=== PATIENT | male | born 1975 | race Hispanic/Latino ===

== ENCOUNTER 2017-11-08 08:49 | Emergency (ER) | payer OTHER ==
[2017-11-08 09:05] VITALS: BP 126/83; PULSE 65; RESP 18; TEMP 97; O2SAT 97
--- NOTE | 2017-11-08 09:42 | ED PDOC ---
HPI: Seizure Time Seen by Provider: 11/08/17 09:10 Chief Complaint (Nursing): Seizure History Per: Patient, Family History/Exam Limitations: no limitations Associated Symptoms: denies: Bit Tongue, Incontinence Of Urine, Incontinence Of Stool Additional Complaint(s): Terry is a 42 year old male who presents to the emergency department for medical evaluation [place]/p [place] the train this [place]. Patient states he was having an Aura of 'feeling hot' for 2 minutes. Patient admits he was drinking 9 alcoholic drinks last night. Patient states he had similar episodes last year with the same Aura, and was evaluated by Neurologist at [facility]. Reports his MRI, EEG were all normal, and was not started on any medications. Cousin states he had a post-ictal period, but at baseline mental status right now. Patient denies any headache, paraesthesias, tongue biting, incontinence. PMD: Sh[facility] in [facility] Past Medical History Reviewed: Historical Data, Nursing Documentation, Vital Signs Vital Signs: Last Vital Signs Temp 97 F L 11/08/17 09:01 Pulse 65 11/08/17 09:01 Resp 18 11/08/17 09:01 BP 126/83 11/08/17 09:01 Pulse Ox 97 11/17/17 22:31 - Medical History PMH: Seizures - Surgical History Surgical History: No Surg Hx - Family History Family History: States: Unknown Family Hx Other Family History: Brain Tumor - Social History Alcohol: Social - Allergies Allergies/Adverse Reactions: Allergies Allergy/AdvReac Type Severity Reaction Status Date / Time No Known Allergies Allergy Verified 11/08/17 09:01 Review of Systems ROS Statement: Except As Marked, All Systems Reviewed And Found Negative Neurological: Positive for: Seizures Physical Exam - Reviewed Nursing Documentation Reviewed: Yes Vital Signs Reviewed: Yes - Physical Exam Appears: Positive for: Non-toxic Head Exam: Positive for: ATRAUMATIC, NORMAL INSPECTION, NORMOCEPHALIC Skin: Positive for: Normal Color, Warm, Dry Eye Exam: Positive for: Normal appearance, EOMI, PERRL ENT: Positive for: Normal ENT Inspection Neck: Positive for: Normal Cardiovascular/Chest: Positive for: Regular Rate, Rhythm Respiratory: Positive for: Normal Breath Sounds. Negative for: Respiratory Distress Gastrointestinal/Abdominal: Positive for: Normal Exam, Soft. Negative for: Tenderness Extremity: Positive for: Normal ROM. Negative for: Deformity Neurologic/Psych: Positive for: Alert, service worker II-XII, Oriented (x 3). Negative for : Motor/Sensory Deficits - Laboratory Results Result Diagrams: 11/08/17 09:50 11/08/17 09:50 - ECG O2 Sat by Pulse Oximetry: 97 (RA) Pulse Ox Interpretation: Normal - Physician Consult Information Time Consulting Physican Contacted: 10:55 Physician Contacted: Trip Herndon Outcome Of Conversation: Recommends MRI with and without contrast, EEG and will speak to patient about starting seizure med. Medical Decision Making Medical Decision Making: Time: 09:17 Impression: Recurring seizures Plan: - CT Head without Contrast - EKG - Alcohol Serum - CMP - Drug Screen, Urine - CBC - Partial Thromboplastin Time - Prothrombin Time - Chest X-Ray - Glucose, Blood, POC Stat - Urinalysis Stat Time: 10:22 CT Head without Contrast FINDINGS: HEMORRHAGE: No acute parenchymal, subarachnoid or extra-axial hemorrhage. BRAIN: No mass effect or edema. No atrophy or chronic microvascular ischemic changes. VENTRICLES: Unremarkable. No hydrocephalus. CALVARIUM: Unremarkable. PARANASAL SINUSES: Mucoperiosteal inflammatory changes seen within both maxillary antra with subtotal opacification of the ethmoid air complex extending superiorly into the frontal sinus. Mild moderate mucosal thickening present within the sphenoid sinus. MASTOID AIR CELLS: Unremarkable as visualized. No inflammatory changes. OTHER FINDINGS: None. IMPRESSION: No acute intracranial hemorrhage. Mucoperiosteal inflammatory changes within all the paranasal sinuses as described. Time: 10:44 Chest X-Ray FINDINGS: LUNGS: No active pulmonary disease. PLEURA: No significant pleural effusion identified, no pneumothorax apparent. CARDIOVASCULAR: Heart size is borderline/ mildly enlarged OSSEOUS STRUCTURES: No significant abnormalities. VISUALIZED UPPER ABDOMEN: Normal. OTHER FINDINGS: None. IMPRESSION: No acute infiltrates. Time: 10:[address] Herndon (Neurologist) 11:45 Pt and Mother decline admission, stating they want to go back to [facility] that evaluated pt last year. Pt signed out AMA, advised to refrain from driving or operating heavy machinery. Medical Emergency Report faxed to the [employer]. Scribe Attestation: Documented by Larry Farias, acting as a scribe for Carol Armstrong MD. Provider Scribe Attestation: All medical record entries made by the Scribe were at my direction and personally dictated by me. I have reviewed the chart and agree that the record accurately reflects my personal performance of the history, physical exam, medical decision making, and the department course for this patient. I have also personally directed, reviewed, and agree with the discharge instructions and disposition. Disposition - Clinical Impression Clinical Impression: Recurrent seizures - Disposition Disposition: Against Medical Advice Disposition Time: 11:34 Condition: UNKNOWN Forms: [employer] ([employer])
[2017-11-08 10:02] LABS: BASO % 0.7 % (0.0-2.0); EOS # 0.3 K/uL (0.0-0.7); HEMOGLOBIN 15.1 g/dL (12.0-18.0); LYMPH # 2.2 K/uL (1.0-4.3); LYMPH % 40.1 % (20.0-40.0); MEAN CELL VOLUME 96.1 fl (80.0-94.0); MEAN CORPUSCULAR HEMOGLOBIN 33.1 pg (27.0-31.0); MEAN CORPUSCULAR HGB CONC 34.4 g/dL (33.0-37.0); MEAN PLATELET VOLUME 8.7 fl (7.2-11.7); MONO # 0.4 K/uL (0.0-0.8); MONO % 8.1 % (0.0-10.0); NEUT # 2.5 K/uL (1.8-7.0); NEUT % 46.1 % (50.0-75.0); RBC 4.55 Mil/uL (4.40-5.90); RED CELL DISTRIBUTION WIDTH 12.9 % (11.5-14.5); WHITE BLOOD COUNT 5.4 K/uL (4.8-10.8)
[2017-11-08 10:13] LABS: ALB/GLOB RATIO 1.3 (1.0-2.1); ALBUMIN 4.3 g/dL (3.5-5.0); ALT/SGPT 46 U/L (21-72); AST/SGOT 23 U/L (17-59); BLOOD UREA NITROGEN 17 mg/dl (9-20); CALCIUM 9.1 mg/dL (8.4-10.2); GFR AFRICAN-AMERICAN > 60; GFR NON-AFRICAN AMERICAN > 60
[2017-11-08 10:18] LABS: URINE BILIRUBIN NEGATIVE (NEGATIVE); URINE BLOOD NEGATIVE (NEGATIVE); URINE CLARITY SLIGHTY-CLOUDY (Clear); URINE COLOR YELLOW (YELLOW); URINE GLUCOSE (UA) NEG (Normal); URINE LEUKOCYTE ESTERASE NEG Leu/uL (Negative); URINE NITRATE NEGATIVE (NEGATIVE); URINE PROTEIN 100 mg/dL (NEGATIVE); URINE UROBILINOGEN 0.2-1.0 mg/dL (0.2-1.0)
[2017-11-08 10:21] LABS: BARBITURATES, UR NEGATIVE (NEGATIVE); BENZODIAZEPINES, UR NEGATIVE (NEGATIVE); OPIATES, UR NEGATIVE (NEGATIVE); PHENCYCLIDINE, UR NEGATIVE (NEGATIVE)
--- NOTE | 2017-11-08 10:23 | CT ---
PROCEDURE: CT scan brain dated 11/08/2017 HISTORY: Seizure COMPARISON: No prior study available comparison. TECHNIQUE: Axial computed tomography images were obtained through the head/brain without intravenous contrast. Radiation dose: Total exam DLP = 874.17 mGy-cm. This CT exam was performed using one or more of the following dose reduction techniques: Automated exposure control, adjustment of the mA and/or kV according to patient size, and/or use of iterative reconstruction technique. FINDINGS: HEMORRHAGE: No acute parenchymal, subarachnoid or extra-axial hemorrhage. BRAIN: No mass effect or edema. No atrophy or chronic microvascular ischemic changes. VENTRICLES: Unremarkable. No hydrocephalus. CALVARIUM: Unremarkable. PARANASAL SINUSES: Mucoperiosteal inflammatory changes seen within both maxillary antra with subtotal opacification of the ethmoid air complex extending superiorly into the frontal sinus. Mild moderate mucosal thickening present within the sphenoid sinus. MASTOID AIR CELLS: Unremarkable as visualized. No inflammatory changes. OTHER FINDINGS: None. IMPRESSION: No acute intracranial hemorrhage. Mucoperiosteal inflammatory changes within all the paranasal sinuses as described.
[2017-11-08 10:37] LABS: PROTHROMBIN TIME 11.1 Seconds (9.8-13.1)
--- NOTE | 2017-11-08 10:45 | RAD ---
HISTORY: Seizure COMPARISON: No prior. FINDINGS: LUNGS: No active pulmonary disease. PLEURA: No significant pleural effusion identified, no pneumothorax apparent. CARDIOVASCULAR: Heart size is borderline/ mildly enlarged OSSEOUS STRUCTURES: No significant abnormalities. VISUALIZED UPPER ABDOMEN: Normal. OTHER FINDINGS: None. IMPRESSION: No acute infiltrates.
--- NOTE | 2017-11-08 13:22 | CARD ---
APPROVED REPORT EKG Measurement Heart [id number] <Conclusion> Normal sinus rhythm Possible Left atrial enlargement Borderline ECG
== END 2017-11-08 12:18 | disposition left against medical advice (07) ==
LOC: H.ER 08:49
DX: G40.909 Epilepsy, unspecified, not intractable, without status epilepticus (principal)